=== PATIENT | female | born 2000 | race Caucasian/White ===

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

== ENCOUNTER 2022-02-11 15:59 | Outpatient (REF) | payer MEDICAID, SELFPAY | END 2022-02-11 16:00 | disposition home or self-care (01) | LOC: NCHCN 15:59 | PROVIDERS: PCP Nurse Practitioner Pediatrics; Visit Provider Registered Nurse | DX: N89.8 Other specified noninflammatory disorders of vagina (principal) | CPT/HCPCS: 87480; 87510; 87660 ==

== ENCOUNTER 2022-11-29 16:17 | Outpatient (REF) | payer MEDICAID, SELFPAY ==
[2022-11-30 15:20] LABS: Chlamydia Result Negative (Negative); GC Result Negative (Negative)
== END 2022-11-29 16:18 | disposition home or self-care (01) ==
LOC: NCHCN 16:17
PROVIDERS: PCP Family Medicine; Visit Provider Family Medicine
DX: N89.8 Other specified noninflammatory disorders of vagina (principal); Z11.3 Encounter for screening for infections with a predominantly sexual mode of transmission
CPT/HCPCS: 87491; 87591; 87480; 87510; 87660

== ENCOUNTER 2023-04-26 13:41 | Outpatient (REF) | payer MEDICAID, SELFPAY ==
[2023-04-28 14:34] LABS: Bacterial Vaginosis (BV) Positive (Negative); Candida glabrata Negative (Negative); Candida species group Negative (Negative); Trichomonas vaginalis Negative (Negative)
== END 2023-04-26 13:42 | disposition home or self-care (01) ==
LOC: NCHCN 13:41
PROVIDERS: PCP Family Medicine; Visit Provider Nurse Practitioner Family
DX: Z30.9 Encounter for contraceptive management, unspecified (principal)
CPT/HCPCS: 81513; 87481; 87661; 87480; 87510; 87660